=== PATIENT | female | born 1960 | race Caucasian/White ===

== ENCOUNTER 2018-07-17 04:20 | Emergency (ER) | payer OTHER ==
[~2018-07-17] VITALS: Ht 172.7 cm; Wt 117.9 kg
[~2018-07-17 04:20] MED LIST: AMITRIPTYLINE H25 M2 PO; CIPRO500 MG PO; PHENAZOPYRIDIN200 M2 PO; PROPRANOLOL 1010 MG PO; XANAX 0.25 MG0.25 MG PO
[2018-07-17 04:45] LABS: HEMOGLOBIN 15.1 gm/dL (12.0-15.0); MCH 27.1 pg (26.0-34.0); MCHC 32.2 g/dL (28.0-37.0); MCV 84.2 fL (80.0-100.0); MPV 7.7 fl. (7.2-11.1); NUCLEATED RBCS 0 /100WBC; PLATELET COUNT* 297 thou/uL (150-400); RBC 5.58 mil/uL (4.20-5.00); RDW-CV 15.6 % (10.5-14.5); WBC 17.2 thou/uL (4.0-11.0)
[2018-07-17] MEDS ORDERED: SERTRALINE HCL50 MG (04:46)
[2018-07-17] MEDS ORDERED: SINGULAIR 10 MG10 M1 (04:46)
[2018-07-17] MEDS ORDERED: ATIVAN (04:47)
[2018-07-17] MEDS ORDERED: ZESTRIL10 MG (04:48)
[2018-07-17 04:54] LABS: CALCIUM 8.2 mg/dL (8.5-10.1); CREATININE 0.8 mg/dL (0.6-1.3)
[2018-07-17 04:59] LABS: ALBUMIN 3.9 g/dL (3.4-5.0); TOTAL BILIRUBIN 0.3 mg/dL (<0.1-1.0); TOTAL PROTEIN 7.8 g/dL (6.4-8.2)
[2018-07-17 06:25] LABS: ABSOLUTE LYMPHOCYTES 0.7 thou/uL (0.8-5.3); ABSOLUTE MONOCYTES 0.7 thou/uL (0.0-1.2); ABSOLUTE NEUTROPHILS 15.8 thou/uL (1.6-8.1); PLATELET ESTIMATE ADEQUATE
[2018-07-17 06:26] LABS: ANISOCYTOSIS Occasional
[2018-07-17] MEDS ORDERED: ZOFRAN ODT4 MG DISSOLVE (06:31)
[2018-07-17] MEDS ORDERED: BENTYL 20 MG TA20 M1 PO (06:31)
[2018-07-17 06:35] VITALS: BP 148/83
== END 2018-07-17 06:35 | disposition home or self-care (01) ==
LOC: M.ERS 04:20
PROVIDERS: Emergency Medicine Emergency Medical Services
DX: K52.9 Noninfective gastroenteritis and colitis, unspecified (principal); J45.909 Unspecified asthma, uncomplicated; G43.909 Migraine, unspecified, not intractable, without status migrainosus; Z87.891 Personal history of nicotine dependence; Z88.1 Allergy status to other antibiotic agents; Z88.2 Allergy status to sulfonamides; Z90.710 Acquired absence of both cervix and uterus

== ENCOUNTER 2018-10-15 11:03 | Emergency (ER) | payer OTHER ==
[~2018-10-15] VITALS: Ht 172.7 cm; Wt 113.4 kg
[~2018-10-15 11:03] MED LIST changes: +ATIVAN; +BENTYL 20 MG TA20 M1 PO; +SERTRALINE HCL50 MG; +SINGULAIR 10 MG10 M1; +ZESTRIL10 MG; +ZOFRAN ODT4 MG DISSOLVE
[2018-10-15 11:08] VITALS: BP 166/95
[2018-10-15] MEDS ORDERED: SERTRALINE HCL50 MG PO (11:13)
[2018-10-15] MEDS ORDERED: NORVASC10 MG PO (11:13)
== END 2018-10-15 12:07 | disposition home or self-care (01) ==
LOC: M.ERS 11:03
DX: R04.0 Epistaxis (principal); I10 Essential (primary) hypertension; J45.909 Unspecified asthma, uncomplicated; G43.909 Migraine, unspecified, not intractable, without status migrainosus; Z90.710 Acquired absence of both cervix and uterus; Z87.891 Personal history of nicotine dependence; Z88.0 Allergy status to penicillin; Z88.2 Allergy status to sulfonamides

== ENCOUNTER → 2021-08-28 | Outpatient (CLI) | payer OTHER ==
[2021-08-28] VITALS (10 sets, daily range): BP systolic 119–131; BP diastolic 66–77
[~2021-08-28] VITALS: Ht 170.2 cm; Wt 128.4 kg
[~2021-08-28] MED LIST changes: +ALBUTEROL2.5 MG/31 INH; +APAP650 PO; +AZITHROMYCIN 2250 MG PO; +B COMPLEX1 EACH PO; +BENZONATATE100 MG PO; +BLUE-EMU LIDOC1 EACH TOP; +FLOVENT DISKUS50 MCG INH; +IPRAT-ALBUT 0.5-3 ML INH; +LEVAQUIN 750 M750 MG PO; +METFORMIN HCL500 M3 PO; +MOBIC7.5 MG PO; +NORVASC10 MG PO; +PREDNISONE 20 M20 MG PO; +PREDNISONE50 MG PO; +PREGABALIN150 MG PO; +PROAIR DIGIHAL90 MCG INH; +PROAIR HFA8.5 GM INH; +PULMICORT0.5 MG/2 M INH; +SERTRALINE HCL50 MG PO; -SINGULAIR 10 MG10 M1; +SINGULAIR 10 MG10 M1 PO; +SINGULAIR 10 MG10 MG PO; +TRAMADOL 50 MG50 MG PO; +ULTRAM50 MG PO; +VOLTAREN ARTHRI20 GM TOP; +ZANTAC 150MG T150 MG PO; +ZOLOFT50 M1 PO
[2021-08-28 12:27] LABS: HEMATOCRIT 39.4 % (37.0-47.0); MCH 26.7 pg (26.0-34.0); MCHC 32.9 g/dL (28.0-37.0); MCV 81.3 fL (80.0-100.0); MPV 8.3 fl. (7.2-11.1); RBC 4.85 mil/uL (4.20-5.00); RDW-CV 15.7 % (10.5-14.5); WBC 6.2 thou/uL (4.0-11.0)
[2021-08-28 12:37] LABS: ANION GAP 7 mmol/L (7-16); BUN 16 mg/dL (7-18); CALCIUM 8.8 mg/dL (8.5-10.1); CHLORIDE 102 mmol/L (98-107); CO2 32 mmol/L (21-32); CREATININE 0.6 mg/dL (0.6-1.3); GLUCOSE 91 mg/dL (70-99); POTASSIUM 4.1 mmol/L (3.5-5.1); SODIUM 141 mmol/L (136-145)
[2021-08-28 12:38] LABS: APTT 29.6 Seconds (25.0-31.3); PROTIME 10.4 Seconds (9.20-11.50)
[2021-08-28 12:39] LABS: ALKALINE PHOSPHATASE 106 U/L (46-116); CHOLESTEROL 172 mg/dL (<200); HDL CHOLESTEROL 38 mg/dL (>40); LDL CHOLESTEROL 103 mg/dL (<100); SGOT 15 U/L (15-37); SGPT 29 U/L (30-65); TC:HDL 4.5 Ratio (Not establshd); TOTAL BILIRUBIN 0.3 mg/dL (<0.1-1.0); TOTAL PROTEIN 7.5 g/dL (6.4-8.2); TRIGLYCERIDE 155 mg/dL (<150); VLDL 31 mg/dL (<40)
[2021-08-28 12:45] LABS: SERUM ASSESSMENT Clear
--- NOTE | 2021-08-28 13:16 | EKG ---
[place] [address] ELECTROCARDIOGRAM REPORT Name: AMANDA ENNIS Room: [facility]#: [id number] Admission: 08/28/21 Attend Phys: Solo Mcleod, Discharge: Date of : 58 Date of Service: 08/28/21 1228 Report #: [id number] THIS REPORT FOR: //name// [facility] Test Date: 2021-08-28 Test Time: 12:28:16 Pat Name: AMANDA ENNIS Department: Room: Gender: F Care Transitions Manager: CHELLE KERR : 1960 Requested By: Solo Mcleod Order Number: [id number] Reading MD: Aly Gutierrez Measurements Intervals [place] Rate: 70 P: 55 GA: 166 QRS: 17 QRSD: 95 T: 52 QT: 417 QTc: 450 Interpretive Statements Sinus rhythm Baseline wander in lead(s) V1 Compared to ECG 11/09/2018 07:34:57 Sinus tachycardia no longer present Ventricular premature complex(es) no longer present Early repolarization no longer present Electronically Signed On 08-28-2021 13:16:35 [employer] CART[employer]ONIST by Aly Gutierrez [email or web address] <ELECTRONICALLY SIGNED> By: Aly Gutierrez MD, FACC 08/28/21 1316 1228 1228 Aly Gutierrez MD, FAC /EPI
--- NOTE | 2021-08-28 18:31 | CARD ---
[address] [address] CARDIAC CATH REPORT Name: AMANDA ENNIS Room: [facility] Ann-Marie#: [id number] Admission: 08/28/21 Attend Phys: Solo Mcleod MD Discharge: Date of : 58 Report #: [id number] THIS REPORT FOR: cc: Millie Lu. Millie Paris. Solo Henning MD [facility] ~ APPROVED REPORT Study performed: 08/28/2021 12:50:44 Patient Details Patient Status: Out-Patient Room #: The patient is a 61 year-old female Event Personnel Solo Mcleod Neurodiagnostic Tech, Aly Gutierrez Commercial Loan Underwriter, Ingrid Mg ScrubSmith Jessie RTR Monitor, Sarah Carmen RN tool and die maker/designer Performed Art Access - R radial artery Left Heart Cath w/or w/o Coronaries Hemostasis with Hemoband Admission/Lab Medications/Medications given during procedure Oxygen Nasal cannula 2 l per min, 0.9% Sodium Chloride IV 75 ml per hr, Lidocaine Subcut 6 ml, Nitroglycerin IA 100 mcg, Oxygen Nasal cannula 5 l per min, Heparin IV 5000 units,verapamil IA 12.5 mg Procedure Narrative The patient was brought electively to the Cardiac Catheterization Laboratory and was prepped and draped in a sterile manner. The right wrist was infiltrated with 2% Lidocaine subcutaneous anesthesia. IV conscious sedation was used throughout procedure with appropriate monitoring and was performed in the presence of a registered nurse who was an independent trained observer other than the physician performing the procedure. A Slender Glidesheath sheath was inserted into the right radial artery. Coronary angiography was performed using coronary diagnostic catheters. The right coronary system was accessed and visualized with a Diagnostic 6 Fr JR 4 catheter. The left coronary system was accessed and visualized with a Guide 6 Fr XBLAD 3.5 catheter. The left ventricle was accessed and visualized with a Diagnostic 6 Fr JR 4 catheter. Left ventricular/Aortic Valve gradient assessed via catheter pullback. [place] [address] CARDIAC CATH REPORT Name: AMANDA ENNIS Room: [facility]#: [id number] Admission: 08/28/21 Attend Phys: Solo Mcleod MD Discharge: Date of : 58 Report #: [id number] with a Fr Vasc-Band Reg 24cm. The patient tolerated the procedure well and there were no complications associated with the procedure. There was no hematoma. Intraoperative Conscious Sedation Sedation start time: 14:00 Case end Time: 14:30 Fentanyl 50 mcg Versed 2 mg Fluoro Time: 14.6 minutes Dose: DAP 378130 cGycm2 2465 mGy Contrast Type and Amount: Omnipaque 170 mL Diagnostic Cath Left Main There are separate ostia for the LAD and circumflex. LAD The left anterior descending coronary artery has minimal plaquing in its proximal portion. The mid and distal vessel appear free of significant disease. Diagonal 1 A small first diagonal branch appears normal. Diagonal 2 A small second diagonal branch appears normal. Circumflex The circumflex coronary artery is large in caliber and normal. The circumflex terminates in a large branch first obtuse marginal branch. OM1 The first obtuse marginal branch is a very large vessel that is normal. Right Coronary The right coronary artery is a large and dominant vessel that appears normal in its proximal mid and distal portion. R PDA The right posterior descending artery is normal. RPLV A large and branched right posterior lateral LV branch is normal. Hemodynamics The aortic pressure is 107/62 mmHg with a mean of 80 mmHg. The left ventricular pressure is 145/9 mmHg with a mean of mmHg. The left ventricular end diastolic pressure is 18 mmHg. Conclusion 1. Minimal plaquing in the left anterior descending coronary artery. 2. Minimally elevated left ventricular end-diastolic [place] [address] CARDIAC CATH REPORT Name: AMANDA ENNIS Room: [facility]#: [id number] Admission: 08/28/21 Attend Phys: oSlo Mcleod MD Discharge: Date of : 58 Report #: [id number] 1. Continue medical management and aggressive risk factor modification. <ELECTRONICALLY SIGNED> By: Solo Mcleod MD, FACC 08/28/211830 30 30Michaeharshal Mcleod MD, [facility] /INF
== END | disposition home or self-care (01) ==
LOC: M.CL 11:32
PROVIDERS: ATTEND Internal Medicine Cardiovascular Disease
DX: R94.39 Abnormal result of other cardiovascular function study (principal); I25.10 Atherosclerotic heart disease of native coronary artery without angina pectoris; I10 Essential (primary) hypertension; J45.909 Unspecified asthma, uncomplicated; G43.909 Migraine, unspecified, not intractable, without status migrainosus; F41.9 Anxiety disorder, unspecified; Z98.890 Other specified postprocedural states; Z79.899 Other long term (current) drug therapy; Z90.710 Acquired absence of both cervix and uterus; Z88.2 Allergy status to sulfonamides; Z88.0 Allergy status to penicillin; Z88.6 Allergy status to analgesic agent; Z88.8 Allergy status to other drugs, medicaments and biological substances

== ENCOUNTER 2021-11-05 16:35 | Emergency (ER) | payer OTHER ==
[~2021-11-05] VITALS: Ht 170.2 cm; Wt 124.3 kg
[2021-11-05] MEDS ORDERED: LIPITOR10 MG PO (16:56)
[2021-11-05 18:13] LABS: ABSOLUTE EOSINOPHILS 0.2 thou/uL (0.0-0.7); ABSOLUTE LYMPHOCYTES 1.4 thou/uL (0.8-5.3); ABSOLUTE MONOCYTES 0.4 thou/uL (0.0-1.2); ABSOLUTE NEUTROPHILS 6.3 thou/uL (1.6-8.1); BASOPHILS 0.4 %; EOSINOPHILS 2.5 %; HEMATOCRIT 39.8 % (37.0-47.0); HEMOGLOBIN 13.1 gm/dL (12.0-15.0); LYMPHOCYTES 16.9 %; MCH 26.5 pg (26.0-34.0); MCHC 32.9 g/dL (28.0-37.0); MCV 80.5 fL (80.0-100.0); MONOCYTES 4.9 %; NUCLEATED RBCS 0 /100WBC; PLATELET COUNT* 252 thou/uL (150-400); POLYS 75.3 %; RBC 4.95 mil/uL (4.20-5.00); RDW-CV 15.5 % (10.5-14.5); WBC 8.3 thou/uL (4.0-11.0)
[2021-11-05 18:21] LABS: CREATININE 0.7 mg/dL (0.6-1.3); POTASSIUM 3.9 mmol/L (3.5-5.1)
[2021-11-05 18:26] LABS: ALBUMIN 4.3 g/dL (3.4-5.0); TOTAL BILIRUBIN 0.3 mg/dL (<0.1-1.0); TOTAL PROTEIN 7.7 g/dL (6.4-8.2)
[2021-11-05 19:05] VITALS: BP 128/89
== END 2021-11-05 19:08 | disposition home or self-care (01) ==
LOC: M.ERS 16:35
PROVIDERS: Physician Assistant
DX: R04.0 Epistaxis (principal); J34.89 Other specified disorders of nose and nasal sinuses; I10 Essential (primary) hypertension; J45.909 Unspecified asthma, uncomplicated; G43.909 Migraine, unspecified, not intractable, without status migrainosus; F41.9 Anxiety disorder, unspecified; Z90.710 Acquired absence of both cervix and uterus; Z79.899 Other long term (current) drug therapy; Z88.1 Allergy status to other antibiotic agents; Z88.5 Allergy status to narcotic agent; Z88.0 Allergy status to penicillin; Z88.2 Allergy status to sulfonamides